=== PATIENT | female | born 1960 | race Caucasian/White ===

== ENCOUNTER 2024-12-24 08:33 | Day surgery (SDC) | payer MEDICARE ==
--- NOTE | 2024-12-20 14:18 | ELECTROCARDIOGRAPH REPORT ---
[facility] Test Date: 2024-12-20 Test Time: 14:12:44 Pat Name: SAEID CALLAHAN Department: [facility]-PRE-OP Patient ID: [id number] Room: Gender: F Shift Engineer: YARON : 1960 Requested By: PRIYANKA COBB Order Number: [id number] Reading MD: Dr. BHUPENDRA Heck Measurements Intervals [place] Rate: 67 P: 56 [place]: 147 QRS: 47 QRSD: 81 T: 233 QT: 382 QTc: 404 Interpretive Statements Sinus rhythm Ventricular premature complex Borderline repolarization abnormality Electronically Signed On 12-21-2024 13:05:[address] BHUPENDRA Heck Please click the below link to view image of tracing.
[2024-12-20 14:26] LABS: MEAN PLATELET VOLUME 9.8 FL (7.4-10.4); PRE OP HEMATOCRIT 41.0 % (35.0-45.0); PRE OP HEMOGLOBIN 13.8 g/dL (12.0-16.0); PRE OP PLATELET COUNT 170 X10'3 (140-440); PRE OP WHITE BLOOD COUNT 7.7 10'3 (4.8-10.8); RED CELL DISTRIBUTION WIDTH 14.2 % (11.5-14.5)
[2024-12-20 14:38] LABS: CREATININE 0.86 MG/DL (0.40-0.90); PRE OP ALT 25 U/L (30-65); PRE OP ANION GAP 5 (8-16); PRE OP AST 12 U/L (10-37); PRE OP BILIRUB, TOTAL 0.3 MG/DL (0.0-1.0); PRE OP GLUCOSE 111 MG/DL (70-104); PRE OP POTASSIUM 3.8 MMOL/L (3.4-5.1); PRE OP SODIUM 140 MMOL/L (135-145); TOTAL CARBON DIOXIDE 29.0 MMOL/L (24-32); eGFR 66 ML/MIN
[~2024-12-24] VITALS: Ht 165.1 cm; Wt 69.2 kg
[2024-12-24] VITALS (7 sets, daily range): BP systolic 90–150; BP diastolic 57–81; PULSE 52–72; RESP 12–16; TEMP 98; O2SAT 94–100
[2024-12-24] MEDS: ceFAZolin 2gm/dext,iso 50mL 50 ML IV ONE (05:30)
[~2024-12-24 08:33] MED LIST: OMEP20CA16 PO; SERT-434 PO
[2024-12-24] MEDS: ringers solution, lacted 1,000 ML IV SCH (09:30)
[2024-12-24] MEDS ORDERED: BUPIVAcaine/PF 2.5mg/ml (0.25%) 10ml vial ONE (09:36)
[2024-12-24] MEDS ORDERED: LIDOcaine 1% 30ml preserv. free vial ONE (09:36)
[2024-12-24] MEDS ORDERED: ondansetron/PF 4mg/2ml inj IV PRN (09:55)
[2024-12-24] MEDS ORDERED: acetaminophen 1,000mg/100ml IV 100 ML IV PRN (09:55)
[2024-12-24] MEDS ORDERED: labetalol 20mg/4ml (5mg/ml) syringe IV PRN (09:55)
[2024-12-24] MEDS ORDERED: morphine 4 MG/ML inj SYRINge IV PRN (09:55)
[2024-12-24] MEDS ORDERED: hydrALAZINE 20mg/ml inj. IV PRN (09:55)
[2024-12-24] MEDS ORDERED: ringers solution, lacted 1,000 ML IV SCH (09:55)
[2024-12-24] MEDS ORDERED: HYDROmorphone/PF 0.2 MG/ML SYRINGE IV PRN ×2 (09:55)
[2024-12-24] MEDS ORDERED: fentaNYL/PF 50MCG/1 ML 2ML syringe ONE (09:56)
[2024-12-24] MEDS: ciprofloxacin lact 400MG/200ML 200 ML IV ONE (09:57)
[2024-12-24] MEDS ORDERED: midazolam 1 mg/ML 2ml injection ONE (10:21)
[2024-12-24] MEDS ORDERED: dexamethasone sod phosphate 4mg/ml inj. ONE (10:21)
[2024-12-24] MEDS ORDERED: ondansetron/PF 4mg/2ml inj ONE (10:22)
[2024-12-24] MEDS ORDERED: rocuronium 10mg/ml inj IV ONE (10:22)
[2024-12-24] MEDS ORDERED: LIDOcaine 2% (20mg/ml) 5ml vial ONE (10:22)
[2024-12-24] MEDS ORDERED: propofol inj 20 ML IV ONE (10:22)
[2024-12-24] MEDS ORDERED: glycopyrrolate 0.2mg/ml inj ONE (10:58)
--- NOTE | 2024-12-24 11:20 | OPERATIVE REPORT ---
Operative Report Providers to ~ Date of Procedure: Dec 24, 2024 Pre-Operative Diagnosis: Right upper back mass Post-Operative Diagnosis SAME as PRE-Op Procedure Performed Excision of right upper back lipoma/neoplasm Surgeon: Mike Borjas DO Purchase Order Checker None Anesthesiologist: Iggy Viera Type of Anesthesia: General Findings: As per operative dictation Complications None Prosthetics\Implants used: None Estimated Blood Loss: Minimal Specimen Removed: 1) fatty tumor consistent with lipoma Description of Procedure: 64-year-old female presents for excision of right upper back lipoma/neoplasm. The risks and benefits of the planned procedure were presented including but not limited to infection, bleeding, poor wound healing, recurrence, and nonresolution of signs and symptoms. She was given the opportunity to ask questions, and all questions were answered to her satisfaction present time. After informed consent was obtained, patient received a dose of prophylactic IV antibiotics. Patient then brought to the operating room placed in the supine position. After general anesthesia was administered, sequential compression device were placed in lower extremities. The patient was then placed in a prone position with all appropriate padding and support. The operative area was prepped and draped as per usual sterile OR technique. The lesion was measured noted to be at the 7.5 cm x 7 cm greatest diameters externally. A 8 cm sagittal incision was made over the mass. The incision was carried down to the level of the dermal subcutaneous layer. Careful blunt dissection was performed to completely excise the mass in toto. Hemostasis was maintained and controlled using Bovie cautery as well as LigaSure device. The dissection was carried down all the way to the fascia of the trapezius muscle. The specimen was marked in orientation with a long stitch as a lateral margin, short stitch for superior margin, and double stitch for deep margin. Copious irrigation was performed. Hemostasis was maintained and controlled. The incision was closed in 2 layers. The subcutaneous dermal layer was approximated using 3-0 Vicryl interrupted sutures. The skin incision was closed with a running 4 0 nylon subcuticular suture. Mastisol and Steri-Strips were placed followed by a 2 x 2 dressing and Tegaderm. Compression dressing with fluff, ABD and Arun bandage was applied. Patient tolerated the procedure well, was extubated and brought to the PACU in stable condition. Counts repoted as correct: Yes MIKE BORJAS DO Dec 24, 2024 11:20
== END 2024-12-24 11:58 | disposition home or self-care (01) ==
LOC: PAS 08:33
PROVIDERS: ATTEND Surgery
DX: D17.1 Benign lipomatous neoplasm of skin and subcutaneous tissue of trunk (principal); I49.3 Ventricular premature depolarization; K21.9 Gastro-esophageal reflux disease without esophagitis; M81.0 Age-related osteoporosis without current pathological fracture; I25.2 Old myocardial infarction; M19.90 Unspecified osteoarthritis, unspecified site; Z79.899 Other long term (current) drug therapy; Z90.710 Acquired absence of both cervix and uterus; Z98.51 Tubal ligation status; Z98.890 Other specified postprocedural states; Z88.0 Allergy status to penicillin
CPT/HCPCS: 21931; 36415; 80053; 82948; 85025; 88304; 93005; A4215; A4618; A6258; A6402; A6446; A6449; A7000; J1100; J2003; J2250; J2405; J2704; J2710; J3010; J3490; J7030; J7120; Z7506; Z7508; Z7512; Z7610